=== PATIENT | male | born 1990 | race Caucasian/White ===

== ENCOUNTER 2016-06-20 22:37 | Emergency (ER) | payer SELFPAY ==
[~2016-06-20] VITALS: Ht 172.7 cm; Wt 82.0 kg
[2016-06-21] MEDS ORDERED: BACITRACIN ZINC OINT UDPKT TOP ONE (04:30)
[2016-06-21] MEDS ORDERED: LIDOCAINE HCL 1% 20ML VIAL (Pyxis) INJ MC ONE (04:30)
[2016-06-21] MEDS ORDERED: HYDROCODONE/ACETAMINOPHEN 5/325MG TABLET PO ONE (05:15)
[2016-06-21 05:42] VITALS: BP 119/62
== END 2016-06-21 06:06 | disposition home or self-care (01) ==
LOC: ER 22:41
DX: L03.012 Cellulitis of left finger (principal)
CPT/HCPCS: 10060; 11765; 99284; J3490; Z7610; 99283